=== PATIENT | male | born 1955 | race Caucasian/White ===

== ENCOUNTER → 2018-02-17 12:39 | Outpatient (CLI) | payer MEDICAID, SELFPAY ==
[2018-02-20 11:28] LABS: Giardia Lamblia, Stool EIA Negative (Negative)
== END ==
PROVIDERS: Family Provider Family Medicine; PCP Family Medicine; Visit Provider Family Medicine
DX: R19.7 Diarrhea, unspecified (principal)
CPT/HCPCS: 87329; 87493; 87506

== ENCOUNTER 2018-02-28 19:55 | Emergency (ER) | payer MEDICAID, SELFPAY ==
[2018-02-28 19:56] VITALS: BP 122/78; PULSE 90; RESP 15; TEMP 36.6; O2SAT 98; BMI 23.9
[2018-02-28] MEDS: 0.9% Normal Saline 1,000 ML 1000 ML IV ×4 (20:48→23:39)
[2018-02-28] MEDS: Ondansetron 4 MG/2 ML Vial IV (20:48)
[2018-02-28 20:50] LABS: BUN 18 mg/dL (7-18); Creatinine, Serum 1.01 mg/dL (0.70-1.30); Glucose 114 mg/dL (74-106)
[2018-02-28 20:51] LABS: Anion Gap 7 (5-15); BUN/Creat Ratio 17.8 RATIO (10-20); Chloride 107 mmol/L (98-107); EST Glomerular Filtration Rate 79 mL/min (>60); Est Glom Filt Rate - Afr Amer 96 mL/min (>60); Estimated Creatinine Clearance 82.17 ml/min; Sodium Level 139 mmol/L (136-145)
--- NOTE | 2018-02-28 21:00 | ED.VISSUMM ---
- ER Visit Summary Date of Service: 02/28/18 Chief Complaint: Dehydration History of Present Illness: The patient is a 62 M who has had problems with nausea vomiting diarrhea for 2-3 weeks. Because the diarrhea persisted and there was a concern that this may be antibiotic induced stool for C. difficile and enteric pathogens were obtained. The C. difficile test was negative. The enteric pathogen stool test was positive for Shigella, toxin 1 and toxin 2, and he was prescribed ciprofloxacin. He is no longer having diarrhea. He now has mushy stool. He had 2 stools last 24 hours. He is vomited 2-3 times today. No hematemesis or coffee grounds noted. He denies fever or chills. He denies any abdominal pain. He has no cardio respiratory symptoms. He states he has no chronic medical problems. He completed his last dose of ciprofloxacin yesterday. He denied any blood or mucus in his stool. Physical Examination: Vital signs are normal. He is not tachycardic nor is afebrile. HEENT exam is remarkable tacky mucosa. Heart is regular without murmur, gallop or rub. S1 and S2 are normal. Lungs are clear to auscultation with good movement of air bilaterally. Abdomen is soft nontender. Bowel sounds are diminished. There is slight tympany. He has no dermatologic lesions noted. Neuro exam is nonfocal. Test Results: BMP is unremarkable. Glucose is slightly elevated 114. GFR 79. Emergency Department Course and Treatment: Because patient has tacky mucosa is had nausea vomiting diarrhea for 2-3 weeks BMP was obtained IV was established she received normal saline since he states he vomits after each time he has something to eat or drink he vomits. needs a work he received 4 mg Zofran IV push. Plan for p.o. challenge. After first liter infused patient had no urge to urinate. A second liter was ordered at 0. He was reassessed at 0. After second liter infused he still has no urge to urinate. 1/3 L of normal saline was ordered. Treatment Plan: Home pack of Zofran ODT and follow-up with Dr. Rai Disposition: Discharged to home in stable and improved condition Impression: 1. Nausea, vomiting diarrhea 2. Recent diagnosis of Shigella 3. Moderate dehydration This note was generated with [employer]ation software. It may contain incorrect words, spelling, and punctuation that were not noted in review of the chart prior to signing ED Disposition - Plan for ED Patient: Disposition: Home or Assisted Living Chief Complaint: Nausea/Vomiting/Diarrhea Instructions: ED Vomiting Diarrhea Nonspecific Ad Referrals: Lobo Kramer DO [Primary Care Provider] - Wilbert Hodges MD [STAFF PHYSICIAN] - 3-5 Days if not improving
[2018-02-28 22:48] VITALS: BP 122/73; PULSE 65; RESP 18; O2SAT 98
--- NOTE | 2018-02-28 23:35 | ED.DCSUM_ITS ---
- ER Visit Summary Date of Service: 02/28/18 Chief Complaint: [] History of Present Illness: The patient is a 62 M [] Physical Examination: [] Test Results: [] Emergency Department Course and Treatment: [] Treatment Plan: [] Disposition: [] Impression: [] This note was generated with [employer] dictation software. It may contain incorrect words, spelling, and punctuation that were not noted in review of the chart prior to signing ED Disposition - Plan for ED Patient: Disposition: Home or Assisted Living Chief Complaint: Nausea/Vomiting/Diarrhea Instructions: ED Vomiting Diarrhea Nonspecific Ad Prescriptions: Ondansetron [Zofran Odt] 4 mg PO Q8H PRN PRN #5 tab.rapdis PRN Reason: Nausea/Vomiting Referrals: Lobo Kramer DO [Primary Care Provider] - Wilbert Hodges MD [STAFF PHYSICIAN] - 3-5 Days if not improving
[2018-03-01] MEDS: Ondansetron ODT 4 MG Tablet PO (00:26)
[2018-03-01 00:27] VITALS: BP 105/82; PULSE 80
== END 2018-03-01 00:27 | disposition home or self-care (01) ==
PROVIDERS: Emergency Provider Emergency Medicine; Family Provider Family Medicine; PCP Family Medicine
DX: R11.2 Nausea with vomiting, unspecified (principal); R19.7 Diarrhea, unspecified; E86.0 Dehydration; A09 Infectious gastroenteritis and colitis, unspecified; A03.8 Other shigellosis; Z79.2 Long term (current) use of antibiotics
CPT/HCPCS: 80048; 96361; 96374; 99284; J7030; A4216

== ENCOUNTER → 2018-03-05 08:00 | Outpatient (CLI) | payer MEDICAID, SELFPAY ==
[2018-03-09 12:59] LABS: Fats, Neutral Normal (.); Fats, Total Normal (.)
== END ==
PROVIDERS: Family Provider Family Medicine; PCP Family Medicine; Visit Provider Family Medicine
DX: R19.7 Diarrhea, unspecified (principal); R10.9 Unspecified abdominal pain
CPT/HCPCS: 82705; 83630; 87177; 87209; 87493; 87506

== ENCOUNTER → 2018-03-23 16:37 | Outpatient (CLI) | payer MEDICAID, SELFPAY ==
[2018-03-23 17:45] LABS: Absolute Neutrophil Count 4.6 X10^3/uL (2.0-7.7); Basophil# 0.03 X10^3/uL; Basophil% 0.4 % (0-1); Eosinophil# 0.08 X10^3/uL; Eosinophils% 1.1 % (0-5); Hematocrit 44.1 % (40-54); Hemoglobin 14.9 g/dl (13.0-16.5); Lymphocyte % 21.5 % (19-41); Mean Corp Hgb Conc 33.8 g/gl (32-36); Mean Corpuscular Hgb 29.9 pg (27.0-32.0); Mean Corpuscular Volume 88.6 fL (80-94); Mean Platelet Vol. 10.1 fl (6.2-12.0); Monocyte# 1.14 X10^3/uL; Monocyte% 15.3 % (0-10); Neutrophil # 4.59 X10^3/uL (2.7-7.7); Neutrophil % 61.6 % (47-70); POSITIVE COUNT NO; POSITIVE DIFFERENTIAL NO; POSITIVE MORPHOLOGY NO; Platelet Count 319 K/mm3 (150-450); RBC Distribution Width CV 13.3 % (11.6-14.6); RBC Distribution Width SD 42.8 fl (35.1-43.9); Red Blood Count 4.98 M/mm3 (4.6-6.2); White Blood Count 7.5 K/mm3 (4.4-11.0)
[2018-03-23 17:53] LABS: Erythrocyte Sedimentation Rate 7 mm/hr (0-20)
[2018-03-23 18:22] LABS: AST(SGOT) 46 U/L (15-37); Alanine Aminotransfer ALT/SGPT 91 U/L (16-61); Albumin, Serum 2.9 g/dL (3.2-5.0); Alkaline Phosphatase 82 U/L (45-117); Anion Gap 10 (5-15); BUN 12 mg/dL (7-18); BUN/Creat Ratio 12.1 RATIO (10-20); CRP 4.47 mg/L (0.0-3.0); Calcium,Total 7.7 mg/dL (8.5-10.1); Chloride 105 mmol/L (98-107); Creatinine, Serum 0.99 mg/dL (0.70-1.30); EST Glomerular Filtration Rate 81 mL/min (>60); Est Glom Filt Rate - Afr Amer 98 mL/min (>60); Globulin 2.9 g/dL (2.2-4.2); Glucose 106 mg/dL (74-106); Lipase 75 U/L (73-393); Potassium 3.8 mmol/L (3.5-5.1); Protein, Total 5.8 g/dL (6.4-8.2); Sodium Level 139 mmol/L (136-145)
== END ==
PROVIDERS: Family Provider Family Medicine; PCP Family Medicine; Visit Provider Family Medicine
DX: A09 Infectious gastroenteritis and colitis, unspecified (principal)
CPT/HCPCS: 36415; 80053; 83690; 85025; 85652; 86140

== ENCOUNTER → 2018-04-20 11:31 | Outpatient (CLI) | payer MEDICAID, SELFPAY ==
[2018-04-20 16:10] LABS: Absolute Lymphocyte Count 1.57 X10^3/ul (0.83-4.51); Absolute Neutrophil Count 2.9 X10^3/uL (2.0-7.7); Basophil# 0.02 X10^3/uL; Basophil% 0.4 % (0-1); Eosinophil# 0.01 X10^3/uL; Eosinophils% 0.2 % (0-5); Hematocrit 43.4 % (40-54); Hemoglobin 14.4 g/dl (13.0-16.5); Lymphocyte # 1.57 X10^3/ul (4.0); Lymphocyte % 30.3 % (19-41); Mean Corp Hgb Conc 33.2 g/gl (32-36); Mean Corpuscular Hgb 29.8 pg (27.0-32.0); Mean Corpuscular Volume 89.7 fL (80-94); Monocyte# 0.66 X10^3/uL; Monocyte% 12.7 % (0-10); Platelet Count 367 K/mm3 (150-450); RBC Distribution Width CV 13.7 % (11.6-14.6); RBC Distribution Width SD 44.6 fl (35.1-43.9); Red Blood Count 4.84 M/mm3 (4.6-6.2); White Blood Count 5.2 K/mm3 (4.4-11.0)
[2018-04-20 16:15] LABS: POSITIVE COUNT NO; POSITIVE DIFFERENTIAL NO; POSITIVE MORPHOLOGY NO
[2018-04-20 16:19] LABS: Erythrocyte Sedimentation Rate 12 mm/hr (0-20)
[2018-04-20 16:25] LABS: ALB/GLOB Ratio 0.8 RATIO (0.9-2.4); AST(SGOT) 50 U/L (15-37); Alanine Aminotransfer ALT/SGPT 100 U/L (16-61); Albumin, Serum 2.7 g/dL (3.2-5.0); Alkaline Phosphatase 95 U/L (45-117); Anion Gap 6 (5-15); BUN 12 mg/dL (7-18); BUN/Creat Ratio 12.7 RATIO (10-20); CRP 3.23 mg/L (0.0-3.0); Calcium,Total 8.1 mg/dL (8.5-10.1); Chloride 105 mmol/L (98-107); Creatinine, Serum 0.94 mg/dL (0.70-1.30); EST Glomerular Filtration Rate 86 mL/min (>60); Est Glom Filt Rate - Afr Amer 104 mL/min (>60); Globulin 3.3 g/dL (2.2-4.2); Glucose 108 mg/dL (74-106); Lipase 68 U/L (73-393); Potassium 4.4 mmol/L (3.5-5.1); Sodium Level 138 mmol/L (136-145)
[2018-04-22 12:12] LABS: H. Pylori Antibody (IgG) 0.68 (0.00-0.79)
== END ==
PROVIDERS: Family Provider Family Medicine; PCP Family Medicine; Visit Provider Family Medicine
DX: K52.9 Noninfective gastroenteritis and colitis, unspecified (principal); R11.0 Nausea; Z85.72 Personal history of non-Hodgkin lymphomas
CPT/HCPCS: 36415; 80053; 83690; 85025; 85652; 86140; 86677

== ENCOUNTER → 2020-03-31 | Outpatient (CLI) | payer MEDICARE, OTHER, SELFPAY ==
[2020-03-31 13:48] LABS: Absolute Neutrophil Count 0.3 X10^3/uL (2.0-7.7); Basophil# 0.01 X10^3/uL; Basophil% 1.1 % (0-1); Eosinophil# 0.15 X10^3/uL; Eosinophils% 16.1 % (0-5); Hematocrit 26.7 % (40-54); Hemoglobin 8.8 g/dL (13.0-16.5); Mean Corpuscular Volume 88.1 fL (80-94); Mean Platelet Vol. 9.1 fl (6.2-12.0); Monocyte# 0.03 X10^3/uL; Monocyte% 3.2 % (0-10); NRBC Flagged by Analyzer 0 % (0-5); Neutrophil # 0.34 X10^3/uL (2.7-7.7); Neutrophil % 36.6 % (47-70); POSITIVE COUNT YES; POSITIVE DIFFERENTIAL YES; POSITIVE MORPHOLOGY YES; RBC Distribution Width CV 16.6 % (11.6-14.6); Red Blood Count 3.03 M/mm3 (4.6-6.2)
[2020-03-31 14:01] LABS: AST(SGOT) 16 U/L (15-37); Alanine Aminotransfer ALT/SGPT 19 U/L (16-61); Albumin, Serum 2.7 g/dL (3.2-5.0); Alkaline Phosphatase 66 U/L (45-117); Anion Gap 5 (5-15); BUN 12 mg/dL (7-18); BUN/Creat Ratio 13.8 RATIO (10-20); Calcium,Total 7.7 mg/dL (8.5-10.1); Chloride 107 mmol/L (98-107); Creatinine, Serum 0.87 mg/dL (0.70-1.30); EST Glomerular Filtration Rate 93 mL/min (>60); Est Glom Filt Rate - Afr Amer 113 mL/min (>60); Globulin 3.5 g/dL (2.2-4.2); Glucose 114 mg/dL (74-106); Potassium 3.8 mmol/L (3.5-5.1); Protein, Total 6.2 g/dL (6.4-8.2); Sodium Level 138 mmol/L (136-145)
[2020-03-31 14:03] LABS: Platelet Count 43 K/mm3 (150-450); White Blood Count 0.9 K/mm3 (4.4-11.0)
[2020-03-31 14:04] LABS: Differential Indicated SCAN CRITERIA MET
[2020-03-31 15:08] LABS: Anisocytosis 1+; Platelet Estimate MKD DEC (ADEQ)
[2020-03-31 21:39] LABS: Xtra Tube EP Lab EXTRA TUBE
[2020-04-03 11:51] LABS: Pathologist Review Reviewed
== END | disposition home or self-care (01) ==
LOC: MEDOUTP 12:43
PROVIDERS: PCP Family Medicine
DX: C92.00 Acute myeloblastic leukemia, not having achieved remission (principal); Z45.2 Encounter for adjustment and management of vascular access device
CPT/HCPCS: 36592; 80048; 80076; 85025; A4216

== ENCOUNTER → 2020-04-03 | Outpatient (CLI) | payer MEDICARE, OTHER, SELFPAY ==
[2020-04-03 13:24] LABS: Absolute Lymphocyte Count 0.28 X10^3/uL (0.83-4.51); Absolute Neutrophil Count 0.2 X10^3/uL (2.0-7.7); Eosinophil# 0.02 X10^3/uL; Eosinophils% 3.6 % (0-5); Hemoglobin 7.5 g/dL (13.0-16.5); Lymphocyte # 0.28 X10^3/ul (4.0); Lymphocyte % 50.9 % (19-41); Mean Corp Hgb Conc 32.6 g/dL (32-36); Mean Corpuscular Hgb 29.2 pg (27.0-32.0); Mean Corpuscular Volume 89.5 fL (80-94); Mean Platelet Vol. 9.7 fl (6.2-12.0); Monocyte# 0.03 X10^3/uL; Monocyte% 5.5 % (0-10); NRBC Flagged by Analyzer 0 % (0-5); Neutrophil # 0.22 X10^3/uL (2.7-7.7); POSITIVE COUNT YES; POSITIVE DIFFERENTIAL YES; POSITIVE MORPHOLOGY YES; RBC Distribution Width CV 16.1 % (11.6-14.6); RBC Distribution Width SD 52.4 fl (35.1-43.9); Red Blood Count 2.57 M/mm3 (4.6-6.2)
[2020-04-03 13:28] LABS: Differential Indicated SCAN CRITERIA MET
[2020-04-03 14:23] LABS: Platelet Count 35 K/mm3 (150-450); White Blood Count 0.6 K/mm3 (4.4-11.0)
[2020-04-03 14:47] LABS: Platelet Estimate MKD DEC (ADEQ); Reactive Lymphocyte 1+
[2020-04-03 21:16] LABS: Xtra Tube EP Lab EXTRA TUBE
[2020-04-04 11:28] LABS: Pathologist Review Reviewed
== END | disposition home or self-care (01) ==
LOC: MEDOUTP 12:43
PROVIDERS: PCP Family Medicine
DX: C92.00 Acute myeloblastic leukemia, not having achieved remission (principal); Z45.2 Encounter for adjustment and management of vascular access device
CPT/HCPCS: 36592; 85025; A4216

== ENCOUNTER → 2020-04-06 | Outpatient (CLI) | payer MEDICARE, OTHER, SELFPAY ==
[2020-04-06 14:02] LABS: Absolute Lymphocyte Count 0.31 X10^3/uL (0.83-4.51); Basophil# 0.01 X10^3/uL; Basophil% 2.4 % (0-1); Eosinophil# 0.03 X10^3/uL; Eosinophils% 7.3 % (0-5); Hematocrit 22.5 % (40-54); Hemoglobin 7.4 g/dL (13.0-16.5); Lymphocyte # 0.31 X10^3/ul (4.0); Lymphocyte % 75.6 % (19-41); Mean Corp Hgb Conc 32.9 g/dL (32-36); Mean Corpuscular Hgb 29.4 pg (27.0-32.0); Mean Corpuscular Volume 89.3 fL (80-94); Mean Platelet Vol. 8.8 fl (6.2-12.0); Monocyte# 0.02 X10^3/uL; Monocyte% 4.9 % (0-10); NRBC Flagged by Analyzer 0 % (0-5); Neutrophil # 0.04 X10^3/uL (2.7-7.7); Neutrophil % 9.8 % (47-70); POSITIVE COUNT YES; POSITIVE DIFFERENTIAL YES; POSITIVE MORPHOLOGY YES; Platelet Count 56 K/mm3 (150-450); RBC Distribution Width CV 16.2 % (11.6-14.6); RBC Distribution Width SD 50.2 fl (35.1-43.9); Red Blood Count 2.52 M/mm3 (4.6-6.2)
[2020-04-06 14:12] LABS: Differential Indicated SCAN CRITERIA MET
[2020-04-06 14:19] LABS: AST(SGOT) 13 U/L (15-37); Alanine Aminotransfer ALT/SGPT 18 U/L (16-61); Albumin, Serum 2.6 g/dL (3.2-5.0); Alkaline Phosphatase 77 U/L (45-117); Anion Gap 5 (5-15); BUN 13 mg/dL (7-18); BUN/Creat Ratio 13.9 RATIO (10-20); Bilirubin, Direct 0.28 mg/dL (0.00-0.30); Calcium,Total 7.9 mg/dL (8.5-10.1); Chloride 106 mmol/L (98-107); Creatinine, Serum 0.94 mg/dL (0.70-1.30); EST Glomerular Filtration Rate 86 mL/min (>60); Est Glom Filt Rate - Afr Amer 104 mL/min (>60); Globulin 3.4 g/dL (2.2-4.2); Glucose 99 mg/dL (74-106); Sodium Level 138 mmol/L (136-145)
[2020-04-06 15:02] LABS: White Blood Count 0.4 K/mm3 (4.4-11.0)
[2020-04-06 15:07] LABS: Platelet Estimate MOD DEC (ADEQ)
[2020-04-10 12:05] LABS: Pathologist Review Reviewed
== END | disposition home or self-care (01) ==
LOC: MEDOUTP 12:58
PROVIDERS: PCP Family Medicine
DX: C92.00 Acute myeloblastic leukemia, not having achieved remission (principal); Z45.2 Encounter for adjustment and management of vascular access device
CPT/HCPCS: 36415; 36592; 80048; 80076; 85025; A4216

== ENCOUNTER → 2020-04-10 13:13 | Outpatient (CLI) | payer MEDICARE, OTHER, SELFPAY ==
[2020-04-10 14:04] LABS: Absolute Lymphocyte Count 0.26 X10^3/uL (0.83-4.51); Hematocrit 20.7 % (40-54); Hemoglobin 6.8 g/dL (13.0-16.5); Lymphocyte # 0.26 X10^3/ul (4.0); Lymphocyte % 83.9 % (19-41); Mean Corp Hgb Conc 32.9 g/dL (32-36); Mean Corpuscular Hgb 29.4 pg (27.0-32.0); Mean Corpuscular Volume 89.6 fL (80-94); Mean Platelet Vol. 8.8 fl (6.2-12.0); Monocyte# 0.01 X10^3/uL; Monocyte% 3.2 % (0-10); NRBC Flagged by Analyzer 0 % (0-5); Neutrophil # 0.04 X10^3/uL (2.7-7.7); Neutrophil % 12.9 % (47-70); POSITIVE COUNT YES; POSITIVE DIFFERENTIAL YES; POSITIVE MORPHOLOGY YES; Platelet Count 119 K/mm3 (150-450); RBC Distribution Width CV 17.2 % (11.6-14.6); RBC Distribution Width SD 48.9 fl (35.1-43.9); Red Blood Count 2.31 M/mm3 (4.6-6.2)
[2020-04-10 14:42] LABS: Differential Indicated SCAN CRITERIA MET; White Blood Count 0.3 K/mm3 (4.4-11.0)
[2020-04-10 15:20] LABS: Platelet Estimate ADEQUATE (ADEQ); Red Cell Morphology NORM C+C NORMAL (NORM C&C); Rouleaux 1+
[2020-04-10 15:21] LABS: Atypical Lymphocyte NOTED %
[2020-04-11 11:24] LABS: Pathologist Review Reviewed
== END ==
PROVIDERS: PCP Family Medicine
DX: C92.00 Acute myeloblastic leukemia, not having achieved remission (principal)
CPT/HCPCS: 36592; 85025; A4216

== ENCOUNTER → 2020-04-11 11:38 | Outpatient (CLI) | payer MEDICARE, OTHER, SELFPAY ==
[2020-04-11 11:52] VITALS: BP 95/65; PULSE 76; RESP 16; TEMP 37.1; O2SAT 99; BMI 25.8
[2020-04-11 12:40] VITALS: BP 95/65; PULSE 76; RESP 16; TEMP 37.1; O2SAT 99
[2020-04-11 12:55] VITALS: BP 92/48; PULSE 75; RESP 16; TEMP 37.3; O2SAT 99
[2020-04-11 13:55] VITALS: BP 105/61; PULSE 70; RESP 16; TEMP 37.1; O2SAT 100
[2020-04-11 14:45] VITALS: BP 127/69; PULSE 72; RESP 16; TEMP 37.1; O2SAT 100
== END ==
PROVIDERS: PCP Family Medicine
DX: C92.00 Acute myeloblastic leukemia, not having achieved remission (principal)
CPT/HCPCS: 36430; 86850; 86900; 86901; 86920; 86922; J7040; P9040; A4216

== ENCOUNTER → 2020-04-13 10:24 | Outpatient (CLI) | payer MEDICARE, OTHER, SELFPAY ==
[2020-04-12 15:00] VITALS: BMI 22.0
[2020-04-13 11:22] LABS: Absolute Lymphocyte Count 0.24 X10^3/uL (0.83-4.51); Eosinophil# 0.01 X10^3/uL; Hematocrit 22.7 % (40-54); Hemoglobin 7.4 g/dL (13.0-16.5); Lymphocyte # 0.24 X10^3/ul (4.0); Lymphocyte % 72.7 % (19-41); Mean Corp Hgb Conc 32.6 g/dL (32-36); Mean Corpuscular Hgb 29.2 pg (27.0-32.0); Mean Corpuscular Volume 89.7 fL (80-94); Mean Platelet Vol. 8.6 fl (6.2-12.0); Monocyte# 0.04 X10^3/uL; Monocyte% 12.1 % (0-10); NRBC Flagged by Analyzer 0 % (0-5); Neutrophil # 0.04 X10^3/uL (2.7-7.7); Neutrophil % 12.2 % (47-70); POSITIVE COUNT YES; POSITIVE DIFFERENTIAL YES; POSITIVE MORPHOLOGY YES; Platelet Count 169 K/mm3 (150-450); RBC Distribution Width CV 17.7 % (11.6-14.6); RBC Distribution Width SD 48.8 fl (35.1-43.9); Red Blood Count 2.53 M/mm3 (4.6-6.2)
[2020-04-13 11:38] LABS: AST(SGOT) 9 U/L (15-37); Alanine Aminotransfer ALT/SGPT 16 U/L (16-61); Albumin, Serum 2.7 g/dL (3.2-5.0); Alkaline Phosphatase 82 U/L (45-117); Anion Gap 6 (5-15); BUN 11 mg/dL (7-18); BUN/Creat Ratio 11.4 RATIO (10-20); Bilirubin, Direct 0.25 mg/dL (0.00-0.30); Calcium,Total 7.8 mg/dL (8.5-10.1); Chloride 108 mmol/L (98-107); Creatinine, Serum 0.97 mg/dL (0.70-1.30); Differential Indicated SCAN CRITERIA MET; EST Glomerular Filtration Rate 83 mL/min (>60); Est Glom Filt Rate - Afr Amer 100 mL/min (>60); Globulin 3.3 g/dL (2.2-4.2); Glucose 118 mg/dL (74-106); Potassium 4.1 mmol/L (3.5-5.1); Sodium Level 140 mmol/L (136-145); White Blood Count 0.3 K/mm3 (4.4-11.0)
[2020-04-14 11:46] LABS: Pathologist Review Reviewed
== END ==
PROVIDERS: PCP Family Medicine
DX: C92.00 Acute myeloblastic leukemia, not having achieved remission (principal)
CPT/HCPCS: 80048; 80076; 85025; 86850; 86900; 86901; 86920; 86922

== ENCOUNTER → 2020-04-13 10:39 | Outpatient (CLI) | payer MEDICARE, OTHER, SELFPAY ==
[2020-04-12 15:00] VITALS: BMI 22.0
== END ==
PROVIDERS: PCP Family Medicine; Referring Provider Nurse Practitioner Family; Visit Provider Nurse Practitioner Family
DX: C92.00 Acute myeloblastic leukemia, not having achieved remission (principal); Z11.59 Encounter for screening for other viral diseases
CPT/HCPCS: 36592; 80048; 80076; 85025; 86920; 87635; 94799; G2023; A4216; U0003